=== PATIENT | female | born 1985 | race Caucasian/White ===

== ENCOUNTER → 2018-05-29 10:29 | Outpatient (CLI) | payer MEDICARE, MEDICAID, SELFPAY ==
[2018-05-29 11:30] LABS: Lithium 0.56 mmol/L (0.60-1.20)
== END ==
PROVIDERS: PCP Nurse Practitioner; Visit Provider Nurse Practitioner Psychiatric/Mental Health
DX: F31.5 Bipolar disorder, current episode depressed, severe, with psychotic features (principal); Z51.81 Encounter for therapeutic drug level monitoring
CPT/HCPCS: 36415; 80178

== ENCOUNTER 2018-08-19 12:16 | Outpatient (REF) | payer MEDICARE, MEDICAID, SELFPAY ==
[2018-08-19 13:46] LABS: TSH (W/Ref FT4) 1.37 uIU/mL (0.358-3.74)
[2018-08-19 13:59] LABS: Vitamin D 25 Total 17.3 ng/ml (30-100)
== END 2018-08-19 12:36 ==
LOC: NCHCN 12:16
PROVIDERS: PCP Nurse Practitioner; Visit Provider Nurse Practitioner
DX: E55.9 Vitamin D deficiency, unspecified (principal); E03.9 Hypothyroidism, unspecified
CPT/HCPCS: 82306; 84443

== ENCOUNTER 2019-03-24 01:09 | Outpatient (CLI) | payer MEDICARE, MEDICAID, SELFPAY ==
--- NOTE | 2019-03-24 09:00 | NS.NUTBLAN_ITS ---
DESCRIPTION: Shirley Andrews presents for eating disorder follow up. She has knowledge of healthy eating and provides this for her family much of the time. She does have financial restrictions regarding food purchase. She ws going to track her food but states she tried and does not find that helpful. She eats 800-2200 calories with maintenance caloric intake at 1700 calories according to her. Today she wants a food plan. Shirley states her life is full of worry and anxiety. She is getting help with her therapist for this. ASSESSMENTP Ongoing struggle with food portions and sense of fullness. INTERVENTION: Per her wishes, we focused on a meal plan that will guide food choices and reminder to check hunger/fullness prior to and after the meal. Discussed resources for food and she does already access the ones she wants. PLAN: Shirley will follow food plan and assess hunger/fullness She wishes to return in 1 week
== END 2019-03-24 01:29 ==
PROVIDERS: PCP Nurse Practitioner; Visit Provider Dietitian, Registered
DX: F50.9 Eating disorder, unspecified (principal); Z71.3 Dietary counseling and surveillance
CPT/HCPCS: G0270

== ENCOUNTER 2019-09-11 19:21 | Outpatient (REF) | payer MEDICARE, MEDICAID, SELFPAY ==
[2019-09-11 13:51] LABS: ALT 25 U/L (14-59); AST 14 U/L (15-37); Albumin 3.8 g/dL (3.4-5.0); Alkaline Phosphatase 60 U/L (46-116); Anion Gap 12.6 mmol/L (3-11); BUN 10 mg/dL (7-18); Bilirubin, Total 0.3 mg/dL (0.2-1.0); CO2 21.4 mmol/L (21.0-32.0); CREATININE 0.84 mg/dL (0.55-1.02); Calcium 9.1 mg/dL (8.5-10.1); Calculated LDL 86 mg/dL; Chloride 107 mmol/L (98-107); Cholesterol 159 mg/dL (<200); Glucose 103 mg/dL (74-106); HDL Cholesterol 65 mg/dL (40-60); Potassium 4.5 mmol/L (3.5-5.1); Sodium 141 mmol/L (136-145); TSH (W/Ref FT4) 4.17 uIU/mL (0.36-3.74); Total Protein 7.6 g/dL (6.4-8.2); Triglyceride 44 mg/dL (<150)
[2019-09-11 14:04] LABS: Vitamin D 25 Total 20.5 ng/ml (30-100)
[2019-09-11 14:08] LABS: FREE T4 1.07 ng/dL (0.76-1.46)
== END 2019-09-11 19:41 ==
LOC: NCHCN 19:21
PROVIDERS: PCP Nurse Practitioner; Visit Provider Nurse Practitioner
DX: E03.9 Hypothyroidism, unspecified (principal); E55.9 Vitamin D deficiency, unspecified; Z13.6 Encounter for screening for cardiovascular disorders
CPT/HCPCS: 80053; 80061; 82306; 84439; 84443

== ENCOUNTER 2019-10-13 19:25 | Observation (INO) | payer MEDICARE, MEDICAID, SELFPAY ==
--- NOTE | 2019-10-13 19:38 | ED.GENADUL_ITS ---
Discharge Plan Discharge Details Chief Complaint: PsychEval Primary Care Provider: Leslee Chaves ED Provider: Soco Garza Home Meds and New Rx's Prescriptions: No Action levothyroxine 125 MCG tablet 200 mcg PO DAILY RF: 0 topiramate [Topamax] 200 mg Tablet 200 mg PO DAILY RF: 0 bupropion HCl [Wellbutrin XL] 300 mg Tablet Extended Release 24 Hr 300 mg PO QAM RF: 0 Vitamin D3 4,000 unit Capsule 4,000 unit PO DAILY RF: 0 Probiotic 20 billion cell Capsule, Sprinkle PO RF: 0 Probiotic 100 billion cell Capsule 1 cap PO DAILY RF: 0 Medical Decision Making Patient is 34-year-old female presenting today, accompanied by significant other, with chief complaint of suicidal ideation. Patient has attempted suicide by overdose multiple times historically and reports that she plans to do this once again. Her significant other seems very supportive of the patient and she feels much more comfortable with him around. She reports that at times she is alone, these symptoms can increase. She states that she has been hospitalized for this previously, last was several years ago. She states that her depression has progressively been increasing over the past several months but to return for worse in recent days. She reports that she has not been on a stable medication regimen in several months, has been stopping medications without medical management for this. Patient reports she has a history of bipolar, depression, hypothyroidism. Feels safe at home in a relationship. Overall, feels that the life stressors that typically exacerbate her depression have been improving any despite this, her thoughts of suicide have become more frequent. On exam, patient appears anxious. Otherwise, appears nontoxic. She is declining anxiolytics at this time. She does have old scarring consistent with self-inflicted wounds on the right forearm. No new wounds are evident. Patient is cooperative, seems to have good insight but does seem impulsive. Recently history, reveals patient is likely to need inpatient care. Will consult with mental health, requested CPS laboratory evaluation. Patient's TSH elevated at 13.9. Will check free T4. Free T4 WNL Patient remains calm and comfortable there. She remains on today. She was evaluated by mental health. We discussed various disposition options but I am quite concerned regarding the patient's impulsivity. She also reports mental health that she has been stockpiling medications as she has been thinking about overdosing. Has plans to use this if she is alone. The patient initially had been thinking about being discharged home. However, she seems only be safe in the presence of her significant other who will have to go back to work. With this in mind, and the patient's impulsivity as well as her access to medications, feel that inpatient admission is appropriate. Patient understands the logic and is voluntary to stay. She seems very proactive in her care and is engaged in this plan. Consulted with Dr. Olsen who agrees to admission. HPI General Mode of arrival: ambulatory . Date/Time Provider Initiated Documentation: 10/13/19 19:27 . Limitations to Documentation: no limitations . Information obtained by: patient, family (significant other) and RN notes reviewed . HPI Narrative: Patient is a pleasant 34-year-old female with history of bipolar, depression, hypothyroidism. She reports that she has had issues with the past several months with worsening depression but feels that this is greatly exacerbated over the past few days. Reports that her mental health provider has been adjusting medications and that she did abruptly stop a number of them approximately 1 week ago. Last had her medications changed last week. Reports that over the past few days she is developed suicidal ideations with p lans of overdose. She reports that she has attempted overdose 3 times historically. Reports a particularly when her significant other is gone, these thoughts can become exacerbated. She denies any homicidal ideation. States that she is feeling well otherwise physically. Denies any recent illness. No recent travel. States that she is a student but is currently on break, is cutting back to a part-time at work. Despite this, her depression has been exacerbated even though her overall stress is been improving. Patient is reports she is been having brief visual hallucinations. Describes them as seeing figures in her peripheral vision. Related Data Home Medications Medication Instructions Recorded Confirmed levothyroxine 200 mcg PO DAILY 03/05/15 10/13/19 L.rhamn A-191-L.ac-B.jesus-B.deepali cap PO 10/13/19 [Probiotic] Lactobac 40-Bifido 3-S.thermop 1 cap PO DAILY 10/13/19 10/13/19 [Probiotic] bupropion HCl [Wellbutrin XL] 300 mg PO QAM 10/13/19 10/13/19 cholecalciferol (vitamin D3) 4,000 unit PO DAILY 12/23/19 12/23/19 [Vitamin D3] topiramate [Topamax] 200 mg PO DAILY 10/13/19 10/13/19 Allergies Allergy/AdvReac Type Severity Reaction Status Date / Time lamotrigine Allergy Severe Skin Rash Unverified 10/13/19 20:11 latex Allergy Severe RASH, Unverified 10/13/19 20:11 ANAPHALAXSIS cephalexin monohydrate Allergy Intermediate Hives Unverified 10/13/19 20:11 [From Keflex] Penicillins Allergy Intermediate Skin Rash Unverified 10/13/19 20:11 Review of Systems Constitutional Constitutional: Reports as per HPI, Denies chills, Denies fatigue, Denies fever(s), Denies headache(s) and Denies weakness Eyes Eyes: Denies change in vision ENT Ears, Nose, Mouth, and Throat: Denies headache(s) Cardiovascular Cardiovascular: Reports as per HPI, Denies chest pain, Denies lightheadedness, Denies dyspnea and Denies dyspnea on exertion Respiratory Respiratory: Reports as per HPI, Denies cough, Denies dyspnea and Denies dyspnea on exertion Gastrointestinal Gastrointestinal: Reports as per HPI, Denies abdominal pain, Denies change in claudette wel habits, Denies nausea and Denies vomiting Musculoskeletal Musculoskeletal: Denies abnormal gait Integumentary/Breasts Skin/Breast: Reports as per HPI and Denies rash Neurologic Neurologic: Denies abnormal movements, Denies abnormal speech, Denies abnormal g ait, Denies headache(s), Denies paresthesias and Denies weakness Endocrine Endocrine: Denies fatigue PFSH Social History Smoking/Tobacco Use Status: Former Tobacco Use Alcohol Intake: current Alcohol Intake frequency: holidays/special occasions on ly Drug use: Occasionally Do you feel safe in your relationship?: Yes Exam Const General: cooperative, healthy appearing, comfortable, no acute distress, well developed and well groomed Nutritional Appearance: well nourished and overweight Orientation: alert and awake Eyes General: appearance normal, both eyes and all related structures Resp Effort & Inspection: normal respiratory effort, able to speak in complete sentences and no respiratory distress Auscultation: clear to auscultation bilaterally, no rales, no rhonchi and no wheezes Cardio Rate: regular rate Rhythm: regular rhythm Heart Sounds: S1 normal and S2 normal Skin General skin exam: no rashes or lesions noted Trauma: no lacerations or abrasions Neuro General: alert and awake Cognition: normal cognition Speech: speech normal Gait: normal gait Psych Appearance: grossly normal and well kempt Mental Status: mental status grossly normal Speech and Movement: speech and movement normal Mood: congruent mood Affect: sad Attitude: cooperative Thought Process: normal Thought Content: hallucinations visual and suicidality Insight: insight good Judgment: limited
[2019-10-13 19:40] VITALS: BP 145/94; PULSE 93; RESP 18; TEMP 36.8; O2SAT 97
[2019-10-13 20:09] LABS: Abs Immature Grans 0.03 k/cumm (0.0-0.09); Absolute Basophil Count 0.04 k/cumm (0.0-0.2); Absolute Eosinophil Count 0.27 k/cumm (0.0-0.7); Absolute Lymphocyte Count 2.05 k/cumm (1.2-3.4); Absolute Monocyte Count 0.42 k/cumm (0.11-0.7); Absolute Neutrophil Count 6.33 k/cumm (1.2-6.7); Basophils % 0.4; HCT 36.7 % (36.0-46.0); HGB 12.4 g/dL (12.0-15.5); Immature Grans % 0.3; Lymphocytes % 22.4; Mean Corp. HGB Concentration 33.8 g/dL (32.0-36.0); Mean Corpuscular Hemoglobin 28.8 pg (27.0-33.0); Mean Corpuscular Volume 85.2 fL (80-95); Mean Platelet Volume 11.5 fL (8.0-11.0); Monocytes % 4.6; Neutrophils % 69.3; Platelet Count 271 x1000/uL (130-400); RBC 4.31 m/cumm (4.00-5.20); RBC Distribution Width 13.7 % (11.7-14.6); White Blood Cell Count 9.14 k/cumm (4.4-10.8)
--- NOTE | 2019-10-13 20:19 | NUR.NOTE ---
Nursing Note: Patient states anxiety is manageable at this time. Will let staff know if it increases.
[2019-10-13 20:23] LABS: *AMPHETAMINES SCREEN URINE Negative (Negative); *BARBITURATES SCREEN URINE Negative (Negative); *BENZODIAZEPINES SCREEN URINE Negative (Negative); Cannabinoids THC Negative (Negative); Cocaine Screen,Urine Negative (Negative); METHADONE URINE SCREEN Negative (Negative); OPIATES URINE SCREEN Negative (Negative)
[2019-10-13 20:31] LABS: Tricyclic Antidepressants Negative (Negative)
[2019-10-13 20:33] LABS: ALT 20 U/L (14-59); AST 10 U/L (15-37); Albumin 3.7 g/dL (3.4-5.0); Alkaline Phosphatase 56 U/L (46-116); Anion Gap 10.6 mmol/L (3-11); BUN 11 mg/dL (7-18); Bilirubin, Total 0.3 mg/dL (0.2-1.0); CO2 25.4 mmol/L (21.0-32.0); CREATININE 0.95 mg/dL (0.55-1.02); Calcium 8.6 mg/dL (8.5-10.1); Chloride 108 mmol/L (98-107); Glucose 108 mg/dL (74-106); Potassium 3.4 mmol/L (3.5-5.1); Sodium 144 mmol/L (136-145); TSH 13.99 uIU/mL (0.36-3.74); Total Protein 7.7 g/dL (6.4-8.2)
[2019-10-13 20:39] LABS: Salicylate < 2.8 mg/dL (2.8-20.0)
[2019-10-13 20:42] LABS: Acetaminophen < 2 ug/mL (10-30)
[2019-10-13 20:52] LABS: ETHANOL BLOOD < 3.0 mg/dL (<3)
--- NOTE | 2019-10-13 22:07 | PDOC.MHCN ---
Date of service: 10/13/19 Time of Service: 21:30 Mental Health Crisis Note Presenting Issue How did you arrive at the ED and why did you come: Patient Arrived to the ED for mental health screening; Patient has been experiencing severe anxiety and suicidal ideation. Patient arrived with the support of the significant other. Precipitating Factors Patient reports to be experiencing suicidal ideation, anxiety and intense panic attacks. Patient has been under a lot of stress due to home life and work related responsibilities. Patient is the biological mother of a set of twins (6 years old), Triplets (7 years old) and on the weekends they have their eldest child. Patient works in a high stress environment where transference is common, with limited coping strategies are currently in practice, to help manage the stress. Patient receives services at [facility] for medication management and case management. Patient reported that she used to be enrolled in [employer] services but, became unenrolled as she was high functioning. Patient reported that she feels that the medications are not working to their optimal potential and should be reevaluated, in an inpatient setting, as the patient feels that they have been trying to addressed out patient with very little success. Client has also stopped taking some of her medications recently, as of Sunday. On Sunday patient reports to have had a massive panic attack and that they took their previous script of Clonidine to assist in their panic attack. Patient also reports that they are impulsive and have a stock pile of pills that they feel like they subconsciously kristi for when they feel like they want it to all end. So they can drift of to sleep and never wake up as they sometimes wish that they never were here. Client shared that they have Over dosed 3 times and have been hospitalized in the past. Disposition BEHAVIOR: Client appeared to be anxious, tearful and emotional overwhelmed and seeking validation that seeking treatment would be beneficial. EYE CONTACT: Client was able to maintain appropriate eye contact but, had moments tears, deep sighs, and needed to look away. MOOD: Patient reported to be depressed, anxious, concerned, worried, fearful and overwhelmed despite feeling like she had removed things from her plate to help her manage her mental health more effectively. AFFECT: Patient appeared to be calm, open and friendly. APPETITE: Patient reported that she has experienced moments of eating disorders throug out her life. Client specifically reported that she was going through a binge phase where she would eat everything. SLEEP(trouble falling/staying asleep: Patient reported that she has had little sleep and that it has been interrupted. Plan Patient will wait for a placement on voluntary status and will e moved to the second floor at [facility]. Client will be able to have contact with her fiancee, as he is a great source of support. a huddle will take place to discuss the safety plan. Provisional Diagnosis Adjustment disorder: with mixed anxiety and depression Signature Clinician's Name/Title: Lillie Arredondo Emergency Clinician - commanding officer traffic division
[2019-10-13 23:01] VITALS: BP 136/61; PULSE 65; RESP 16; O2SAT 98
--- NOTE | 2019-10-13 23:16 | PDOC.CMSAFED ---
- If Service Date Differs Date of service: 10/13/19 Time of Service: 23:17 Care Management Safety Plan Chief Complaint: Shirley, was brought to the ED with SI, she will have CPSO as ordered and an interim safety plan. Mental health has evaluated patient she is voluntary and psychiatric placement will be sought. CM spoke with provider in the ED and reviewed safety plan. CM to assess patient in the morning. Mental Health has assessed patient in the ED and has determined the patient meets criteria for psychiatric stabilization CM will facilitate interdepartmental huddle with [facility] screener for safety planning considerations and meet with patient to review [facility] policy and safety plan, establish individual wishes for treatment and maintain patient rights. SAFETY PLAN: 1. Will remain on suicide precautions and in paper clothes. 2. Will remain in room under direct supervision of one-on-one staff at all times provided by NATALIE, CYTOLOGY TEACHER wad lubricator. 3. May have paper cups, plates, finger foods as well as a metal spoon with which to eat meals. [facility] staff will be responsible for accounting of utensils after meals. 4. Follow [facility] Management of the Admitted Behavioral Health Patient policy. 5. Comfort bath wipes or shower with supervision by qualified staff. 6. No personal belongings 7. Visitors include jody Caal at the discretion of primary care staff. . 8. Phone calls at the discretion of primary care team. 9. Due to VOLUNTARY status, if patient wishes to leave [facility], the [facility] early childhood worker must be contacted to re-evaluate patient prior to patient exiting the building. If deemed appropriate for inpatient psychiatric care, safety plan will be established with patient, and care team, to adhere to patient goals, identify restrictions based on behavioral status, address nutrition, and determine allowed personal belongings, tools for hygiene and personal care. As well plan will determine level of activity including ambulation, level of supervision, visitors, and determine privileges based on level of acuity, behaviors and level of engagement by patient.
--- NOTE | 2019-10-13 23:27 | W.PM.HP.N ---
Date of service: 10/13/19 Time of Service: 23:27 Assessment and Plan Assessment and plan (1) Suicidal ideation: Status: Acute Assessment and plan: Patient is admitted under observation status pending transfer to an inpatient psychiatric facility. She is admitted under voluntary status. I will resume her Wellbutrin and her Topamax. (2) Bipolar disorder current episode depressed: Status: Acute Assessment and plan: As above Qualifiers: Current episode severity: severe Psychotic features: without psychotic features Qualified Code(s): F31.4 - Bipolar disorder, current episode depressed, severe, without psychotic features (3) Hypothyroidism (acquired): Status: Acute Assessment and plan: Resume her levothyroxine 200 mcg daily. I am not sure that she has been compliant with her levothyroxine as she is not been compliant with her antidepressants. History of Present Illness History of Present Illness Chief Complaint: depression, suicidal ideation Narrative: 34-year-old female with history of bipolar disorder, anxiety disorder, hypothyroidism who is been experiencing increasing symptoms of depression for the last couple months. She is a client of [facility] where she receives her mental health treatment. She says that she has been working with her mental health provider on adjustment of her medications over the last couple months but is not been helping. Patient's been under increased stress due to work and school and home life responsibilities. She is a biological mother of a set of twins were 6 years old and triplets were 7 years old and also has a 12-year-old. Over the weekend she had stopped taking some of her medications because they were not helping and she subsequently had a massive panic attack on last Sunday in which she was crying uncontrollably and was very mckoy and verbally aggressive. She also reports increased impulsivity and has a history of stockpiling medications particularly her prior antidepressants. She is fearful that she may act impulsively and take an overdose of medications. She reportedly has had 3 previous episodes of drug overdose for which she has been hospitalized. She has had previous hospitalizations in [facility] in November [facility] in [facility] in February 2015. She is seeking inpatient treatment of her depressive episode of her bipolar disorder. She was seen by mental health pantry worker who is put out referrals to the various [facility] that have mental health facilities. Currently there are no inpatient psychiatric beds available and therefore the patient will be admitted to [facility] under a voluntary basis. Patient states that she has followed up with her primary care provider who is responsible for her thyroid replacement. Patient has a multinodular goiter and feels that her levothyroxine may need adjustment. Patient states she is been compliant with her levothyroxine. Despite that her TSH is elevated at 13.99. Patient is now admitted under observation status pending transfer to inpatient psychiatric facility. We will resume her home medications which includes Topamax and Wellbutrin and levothyroxine. Review of Systems Constitutional Constitutional: Reports fatigue Eyes Eyes: Reports system reviewed and no additional complaints, except as docu ENT Ears, Nose, Mouth, and Throat: Reports system reviewed and no additional complaints, except as docu Cardiovascular Cardiovascular: Reports system reviewed and no additional complaints, except as docu Respiratory Respiratory: Reports system reviewed and no additional complaints, except as docu Gastrointestinal Gastrointestinal: Denies abdominal pain, Denies melena, Denies hematochezia, Reports diarrhea, Denies nausea and Denies vomiting Genitourinary Genitourinary: Reports system reviewed and no additional complaints, except as docu Musculoskeletal Musculoskeletal: Reports system reviewed and no additional complaints, except as docu Integumentary/Breasts Skin/Breast: Reports system reviewed and no additional complaints, except as docu Neurologic Neurologic: Reports system reviewed and no additional complaints, except as docu and Reports behavioral changes Psychiatric Psychiatric: Reports abnormal sleep pattern (Excessive sleeping), Reports anxiety, Reports behavioral changes, Reports depression, Reports difficulty concentrating, Reports hopelessness, Reports irritability, Reports mood swings, Reports panic attacks and Reports suicidal ideation Endocrine Endocrine: Reports fatigue Hematologic/Lymphatic Hematologic/Lymphatic: Reports system reviewed and no additional complaints, except as docu Allergic/Immunologic Allergic/Immunologic: Reports system reviewed and no additional complaints, except as docu [facility] Medical History (Updated 10/14/19 @ 00:40 by Blue Olsen) Bipolar disorder current episode depressed (Acute) History of cocaine abuse (Acute) History of drug overdose (Acute) Hypothyroidism (acquired) (Acute) Multinodular goiter (Acute) Suicidal ideation (Acute) Surgical History (Updated 10/14/19 @ 00:31 by Blue Olsen) History of (Chronic) Social History Smoking/Tobacco Use Status: Former Tobacco Use Alcohol Intake: current Alcohol Intake frequency: holidays/special occasions only Drug use: Occasionally Do you feel safe in your relationship?: Yes History History 3 Para 6 Hx # Term Pregnancies 3 Multiple births 2 Hx # Pregnancies Ectopic pregnancies AB induced Hx Number of Living Children 6 AB spontaneous Meds Home Medications and Allergies Home Medications Medication Instructions Recorded Confirmed Type levothyroxine 200 mcg PO DAILY 03/05/15 10/13/19 History L.rhamn A-191-L.ac-B.jesus-B.deepali cap PO 10/13/19 History [Probiotic] Lactobac 40-Bifido 3-S.thermop 1 cap PO DAILY 10/13/19 10/13/19 History [Probiotic] bupropion HCl [Wellbutrin XL] 300 mg PO QAM 10/13/19 10/13/19 History cholecalciferol (vitamin D3) 4,000 unit PO DAILY 10/13/19 10/13/19 History [Vitamin D3] topiramate [Topamax] 200 mg PO DAILY 10/13/19 10/13/19 History Allergies Allergy/AdvReac Type Severity Reaction Status Date / Time lamotrigine Allergy Severe Skin Rash Unverified 10/13/19 20:11 latex Allergy Severe RASH, Unverified 10/13/19 20:11 ANAPHALAXSIS cephalexin monohydrate Allergy Intermediate Hives Unverified 10/13/19 20:11 [From Keflex] Penicillins Allergy Intermediate Skin Rash Unverified 10/13/19 20:11 Exam Narrative Exam Narrative: Young female who is alert and oriented person place time circumstance. She seems to be very appropriate and makes good eye contact with me. She is not tearful. HEENT is unremarkable. Neck supple nontender with diffuse nodular goiter. Normal carotid pulses no bruits, no JVD. Lungs clear to auscultation Heart regular rate and rhythm without murmur rub or gallop. Abdomen obese soft and nontender. Extremities without peripheral cyanosis or edema. No calf tenderness. Neurologic exam grossly intact nonfocal. Results Labs Result diagrams: 10/13/19 20:00 10/13/19 20:00 Labs: Laboratory Results - last 24 hr 10/13/19 10/13/19 10/13/19 19:50 20:00 20:00 WBC RBC Hgb Hct MCV MCH MCHC RDW Plt Count MPV Immature Gran % Neutrophils % Lymphocytes % Monocytes % Eosinophils % Basophils % Absolute Neutrophils Absolute Lymphocytes Absolute Monocytes Absolute Eosinophils Absolute Basophils Sodium 144 Potassium 3.4 L Chloride 108 H Carbon Dioxide 25.4 Anion Gap 10.6 BUN 11 Creatinine 0.95 Estimated GFR/1.73 m2 >= 60.00 Glucose 108 H Calcium 8.6 Total Bilirubin 0.3 AST 10 L ALT 20 Alkaline Phosphatase 56 Total Protein 7.7 Albumin 3.7 TSH 13.99 H Free T4 Salicylates < 2.8 L Urine Opiates Screen Negative Urine Methadone Screen Negative Acetaminophen < 2 L Ur Barbiturates Screen Negative Ur Tricyclics Screen Negative Ur Amphetamines Screen Negative U Benzodiazepines Scrn Negative Urine Cocaine Screen Negative Ur THC Screen Negative Ethyl Alcohol < 3.0 10/13/19 10/13/19 20:00 20:00 WBC 9.14 RBC 4.31 Hgb 12.4 Hct 36.7 MCV 85.2 MCH 28.8 MCHC 33.8 RDW 13.7 Plt Count 271 MPV 11.5 H Immature Gran % 0.3 Neutrophils % 69.3 Lymphocytes % 22.4 Monocytes % 4.6 Eosinophils % 3.0 Basophils % 0.4 Absolute Neutrophils 6.33 Absolute Lymphocytes 2.05 Absolute Monocytes 0.42 Absolute Eosinophils 0.27 Absolute Basophils 0.04 Sodium Potassium Chloride Carbon Dioxide Anion Gap BUN Creatinine Estimated GFR/1.73 m2 Glucose Calcium Total Bilirubin AST ALT Alkaline Phosphatase Total Protein Albumin TSH Free T4 0.80 Salicylates Urine Opiates Screen Urine Methadone Screen Acetaminophen Ur Barbiturates Screen Ur Tricyclics Screen Ur Amphetamines Screen U Benzodiazepines Scrn Urine Cocaine Screen Ur THC Screen Ethyl Alcohol Last Vital Signs Temp 36.8 C 10/13/19 19:40 Pulse 65 10/13/19 23:01 Resp 16 10/13/19 23:01 BP 136/61 10/13/19 23:01 Pulse Ox 98 10/13/19 23:01
--- NOTE | 2019-10-13 23:32 | NUR.NOTE ---
Nursing Note:Patient sent keyla vargas home with S.O.
[2019-10-14 00:10] VITALS: BP 136/61; PULSE 65; RESP 16; O2SAT 98
[2019-10-14 00:40] VITALS: BP 138/88; PULSE 76; RESP 17; TEMP 36.8; O2SAT 98
[2019-10-14 07:25] VITALS: BP 132/73; PULSE 59; RESP 18; TEMP 36.9; O2SAT 97
[2019-10-14] MEDS: Mylanta Suspension 30 ML CUP PO (07:57)
[2019-10-14] MEDS: Cholecalciferol (Vitamin D3) 1,000 UNIT TAB 4000 UNITS PO (09:12)
[2019-10-14] MEDS: Topiramate 100 MG TAB 200 MG PO (09:12)
[2019-10-14] MEDS: Levothyroxine 100 MCG TAB 200 MCG PO (09:12)
[2019-10-14] MEDS: buPROPion-XL 150 MG TABCR 300 MG PO (09:12)
[2019-10-14] MEDS: Lactobacillus Acidophilus CAP 1 CAP PO (09:14)
--- NOTE | 2019-10-14 09:36 | NUR.NOTE ---
Nursing Note: Report phone to at [facility] Psychiatric unit. All questions answered
--- NOTE | 2019-10-14 09:57 | W.PM.DS.N ---
Date of service: 10/14/19 Time of Service: 09:58 DS: Diagnosis Discharge Diagnosis (1) Suicidal ideation: Status: Acute (2) Bipolar disorder current episode depressed: Status: Acute (3) Hypothyroidism (acquired): Status: Acute Discharge Plan Disposition Patient Disposition: [facility] [place] [facility] [place] Condition: Serious Discharge Details Chief Complaint: PsychEval Reason For Visit: SUICIDAL IDEATION, DEPRESSION Admit Date/Time: 10/14/19 00:35 Admit Provider: Blue Olsen Attending Provider: Blue Olsen Primary Care Provider: Leslee Chaves ED Provider: Soco Garza [facility] Hospital Course: Shirley Mata is a pleasant 34 year old female with a past medical history significant for Bipolar I, anxiety and hypothyroidism who has had prior suicide attempts and psychiatric hospitalizations who presented to the hospital yesterday with reports of suicidal ideation. She reports feeling overwhelmed at home, she has twins that are age 6 and triplets that are age 7, as well as a 12 year old. She reported that she stopped taking some of her medications over the weekend because she did not feel that they were helping and she went on to have a panic attack 3 days prior to her presentation. She was admitted on a voluntary basis and interested in inpatient hospitalization. She reports feeling safe here at the hospital, but is concerned that she may attempt to harm or kill herself if she was home. She has been accepted at [facility] for psychaitric stabilization and will transfer there today. Of note, she also reports mild, ongoing epigastric discomfort and was iniated on omeprazole while at [facility], this will be continued upon discharge. Her TSH was noted to be high at 13.99, she has a multinodular goiter and reported being compliant with her levothyroxine, therefore, her dose was increased from 200 to 225 mcg daily. Home Meds and New Rx's Prescriptions: New omeprazole 20 mg Capsule,Delayed Release(Dr/Ec) 20 mg PO DAILY@0730 Qty: 0 RF: 0 Continued topiramate [Topamax] 200 mg Tablet 200 mg PO DAILY RF: 0 bupropion HCl [Wellbutrin XL] 300 mg Tablet Extended Release 24 Hr 300 mg PO QAM RF: 0 Vitamin D3 4,000 unit Capsule 4,000 unit PO DAILY RF: 0 Probiotic 20 billion cell Capsule, Sprinkle PO RF: 0 Probiotic 100 billion cell Capsule 1 cap PO DAILY RF: 0 Changed levothyroxine 125 MCG tablet 225 mcg PO DAILY Qty: 0 RF: 0 Discharge Instructions Instructions: Suicide Prevention for Adults (DC) Activity:: Activity as Tolerated Equipment/Supplies:: No Equipment Needed Diet:: As Tolerated Discharge Orders Discharge Orders: Discharge Order (Routine); Ordered 10/14/19 Ordered By: Jennie Cote DS: Summary Status at Discharge Functional status at discharge: independent ambulation Overall status at discharge: patient is not back to baseline Mental Status: other (depressed with suicidal ideation. ) Speech and Movement: speech and movement normal Mood: anxious mood and other (depressed with suicidal ideation. ) Affect: sad Exam Narrative Exam Narrative: General: overweight, 34 year old female, appears stated age, tearful. HEENT: normocephalic, atraumatic, pupils equal and round, EOMI, mucous membranes moist. Neck: supple, no JVD. Cardiovascular: heart has regular rate and rhythm, non-tachycardic, no murmur appreciated. Respiratory: Respirations appear even and unlabored, lung sounds clear to auscultation throughout. GI: Normoactive bowel sounds, abdomen soft, nontender on palpation, nondistended. Extremities: No clubbing, cyanosis or edema. Psych Mental Status: other (depressed with suicidal ideation. ) Speech and Movement: speech and movement normal Mood: anxious mood and other (depressed with suicidal ideation. ) Affect: sad DS: Data Vitals/I&O Vitals and I&O: Vital Signs Temperature 36.9 C 10/14/19 07:25 Temperature Source Tympanic 10/14/19 07:25 Pulse 59 L 10/14/19 07:25 Pulse Rhythm Regular 10/14/19 08:00 Respiratory Rate 18 10/14/19 07:25 Respiratory Effort Non-Labored 10/14/19 08:00 Respiratory Depth Normal 10/14/19 08:00 Respiratory Pattern Normal 10/14/19 08:00 Blood Pressure 132/73 10/14/19 07:25 Pulse Oximetry 97 10/14/19 07:25 Oxygen Delivery Method Room Air 10/14/19 07:25 Oxygen Flow Rate 0 10/14/19 07:25 Pain Level 5 10/14/19 07:25 Intake & Output 10/13/19 10/13/19 10/14/19 11:59 23:59 11:59 Weight 136.078 kg 138.2 kg Other: Comment pt voiding indpendently. Voiding Methods Toilet Data Completed and Pending Labs on day of discharge: Labs from last 24 hours 10/13/19 10/13/19 10/13/19 20:00 20:00 20:00 WBC 9.14 RBC 4.31 Hgb 12.4 Hct 36.7 MCV 85.2 MCH 28.8 MCHC 33.8 RDW 13.7 Plt Count 271 MPV 11.5 H Immature Gran % 0.3 Neutrophils % 69.3 Lymphocytes % 22.4 Monocytes % 4.6 Eosinophils % 3.0 Basophils % 0.4 Absolute Neutrophils 6.33 Absolute Lymphocytes 2.05 Absolute Monocytes 0.42 Absolute Eosinophils 0.27 Absolute Basophils 0.04 Sodium Potassium Chloride Carbon Dioxide Anion Gap BUN Creatinine Estimated GFR/1.73 m2 Glucose Calcium Total Bilirubin AST ALT Alkaline Phosphatase Total Protein Albumin TSH Free T4 0.80 Salicylates < 2.8 L Urine Opiates Screen Urine Methadone Screen Acetaminophen < 2 L Ur Barbiturates Screen Ur Tricyclics Screen Ur Amphetamines Screen U Benzodiazepines Scrn Urine Cocaine Screen Ur THC Screen Ethyl Alcohol 10/13/19 10/13/19 20:00 19:50 WBC RBC Hgb Hct MCV MCH MCHC RDW Plt Count MPV Immature Gran % Neutrophils % Lymphocytes % Monocytes % Eosinophils % Basophils % Absolute Neutrophils Absolute Lymphocytes Absolute Monocytes Absolute Eosinophils Absolute Basophils Sodium 144 Potassium 3.4 L Chloride 108 H Carbon Dioxide 25.4 Anion Gap 10.6 BUN 11 Creatinine 0.95 Estimated GFR/1.73 m2 >= 60.00 Glucose 108 H Calcium 8.6 Total Bilirubin 0.3 AST 10 L ALT 20 Alkaline Phosphatase 56 Total Protein 7.7 Albumin 3.7 TSH 13.99 H Free T4 Salicylates Urine Opiates Screen Negative Urine Methadone Screen Negative Acetaminophen Ur Barbiturates Screen Negative Ur Tricyclics Screen Negative Ur Amphetamines Screen Negative U Benzodiazepines Scrn Negative Urine Cocaine Screen Negative Ur THC Screen Negative Ethyl Alcohol < 3.0 PFSH Medical History Bipolar disorder current episode depressed (Acute) History of cocaine abuse (Acute) History of drug overdose (Acute) Hypothyroidism (acquired) (Acute) Multinodular goiter (Acute) Suicidal ideation (Acute) Surgical History History of (Chronic) Social History Smoking/Tobacco Use Status: Former Tobacco Use Alcohol Intake: current Alcohol Intake frequency: holidays/special occasions only Drug use: Occasionally Do you feel safe in your relationship?: Yes History History 3 Para 6 Hx # Term Pregnancies 3 Multiple births 2 Hx # Pregnancies Ectopic pregnancies AB induced Hx Number of Living Children 6 AB spontaneous
--- NOTE | 2019-10-14 10:08 | PDOC.CMDIS ---
LACE Index Scoring Tool - Questions: Length of Stay (in days): 1 Acuity (Admit via E.D.?): Yes E.D. Visits: 2 - Answers: Total Score: 6 Risk of Readmission: Low Risk Care Management Discharge Reason for Hospitalization: Suicidal Ideation, Depression Discharge Plan: Shirley will transfer to [facility] via [facility], coordinated by this technical publications writer. CM reviewed discharge/transfer information, provided contact information to Katia Mcgee and answered Shirley's questions. Shirley expressed shame and tearfully explained how her children has witnessed one of her panic attacks. She expressed gratitude at being able to access help and stabilize. Patient/Family Education Needs: Review discharge instructions, discuss transfer considerations. Services Needed at Discharge: Psychiatric Facility ([facility] ), Transportation ([facility]; [place] was contacted and unavailable, [facility] was only available in the afternoon which would not provide arrival within admission time available. )
[2019-10-14] MEDS: Omeprazole 20 MG CAPCR PO (10:31)
--- NOTE | 2019-10-14 10:40 | W.NUTCONSULT ---
Date of service: 10/14/19 Time of Service: 10:41 Nutritional Consult ASSESSMENT: 34 year old female admitted to ER for suicidal ideation. PMH: eating disorder NOS, depression, bipoloar, hypothyroidism, morbid obesity. Following Precaution/finger food meal plan. Has history of suicidal ideation/inpatient treatments. Would benefit from eating disorder treatment once discharged and return homes. At high nutritional risk in view of morbid obesity and history of disordered eating. Met with Shirley and provided contact info for nutrition counseling. Time Spent in Nutritional Counseling and Treatment: 15 min spent face to face
== END 2019-10-14 10:55 | disposition short-term general hospital (02) ==
LOC: ER 22:50 → MS 10-14 00:40
PROVIDERS: Admitting Provider Internal Medicine; Emergency Provider Physician Assistant; PCP Nurse Practitioner; Visit Provider Internal Medicine
DX: F31.4 Bipolar disorder, current episode depressed, severe, without psychotic features (principal); R45.851 Suicidal ideations; E03.9 Hypothyroidism, unspecified; Z91.5 Personal history of self-harm; R10.13 Epigastric pain
CPT/HCPCS: 36415; 80053; 80307; 81025; 99219; 99239; 99285; 80320; 80329; 84439; 84443; 85025; 99217; 99284; G0378

== ENCOUNTER 2019-11-04 09:01 | Outpatient (CLI) | payer MEDICARE, MEDICAID, SELFPAY ==
[2019-11-04 09:44] LABS: VALPROIC ACID 80.7 ug/mL (50-100)
== END 2019-11-04 09:21 ==
PROVIDERS: PCP Nurse Practitioner; Visit Provider Nurse Practitioner Psychiatric/Mental Health
DX: F31.5 Bipolar disorder, current episode depressed, severe, with psychotic features (principal); Z51.81 Encounter for therapeutic drug level monitoring; Z79.899 Other long term (current) drug therapy
CPT/HCPCS: 36415; 80164

== ENCOUNTER 2019-11-21 17:23 | Emergency (ER) | payer MEDICARE, MEDICAID, SELFPAY ==
[2019-11-21 17:31] VITALS: BP 134/60; PULSE 64; RESP 18; TEMP 36.8
--- NOTE | 2019-11-21 17:51 | W.ED.GENAD ---
Discharge Plan Disposition Patient Disposition: HOME Condition: Stable Discharge Details Chief Complaint: PsychEval Clinical Impression: Depression Primary Care Provider: Leslee Chaves ED Provider: Erich Sadler Home Meds and New Rx's Prescriptions: Continued topiramate [Topamax] 200 mg Tablet 200 mg PO DAILY RF: 0 Vitamin D3 4,000 unit Capsule 4,000 unit PO DAILY RF: 0 Probiotic 20 billion cell Capsule, Sprinkle PO RF: 0 Probiotic 100 billion cell Capsule 1 cap PO DAILY RF: 0 levothyroxine 125 MCG tablet 225 mcg PO DAILY Qty: 0 RF: 0 divalproex [Depakote] 500 mg Tablet,Delayed Release (Dr/Ec) 500 mg RF: 0 lorazepam 0.5 mg Tablet RF: 0 Viibryd 40 mg Tablet 40 mg PO RF: 0 Discharge Instructions Additional Instructions: Follow up with [facility] If you feel more depressed or having worsening thoughts of self harm call [facility] immediately or return to the emergency department Medical Decision Making 34 yo female with hx of bipolar and recent hospitalization a month ago at [facility] comes in with worsening thoughts of self harm since d/c from there. Has been performing superficial cutting of her forearms that are very superficial and of various stages ofhealing and not deep enough to reuqire sutures, no evidence of infection. She has not tried to harm herself otherwise but today was having thoughts of wanting to take a punch of pills. Denies alcohol or drug use, is caox4 with stable gait and clear speech and no focal motor or senstaion deficits. No findings on history or physical exam to suggest underlying medical process such as infectious or endocrine disorder as cause of her symptoms. Medically cleared to see mental health Pt seen by mental health and is comfortable with d/c, denies SI now and has no plan. She understands to discuss with mental health in follow up and if worsening return to the emergency department Differential Diagnosis Differential Diagnosis: SI, depression Lab Data Lab results reviewed: Yes I reviewed the patient's lab results. HPI General Mode of arrival: ambulatory. Date/Time Provider Initiated Documentation: 11/21/19 17:28. Limitations to Documentation: no limitations. Information obtained by: patient. History of Present Illness 34 year old F presents to the emergency department with the chief complaint of thoughts of self harm, described as moderate, and it has been constant. No relieving factors improve symptom(s), No exacerbating factors reported . Patient did receive the following treatments prior to arrival, none Related Data Home Medications Medication Instructions Recorded Confirmed Probiotic 1 cap PO DAILY 10/13/19 10/13/19 Probiotic cap PO 10/13/19 Vitamin D3 4,000 unit PO DAILY 10/13/19 10/13/19 topiramate [Topamax] 200 mg PO DAILY 10/13/19 11/21/19 levothyroxine 225 mcg PO DAILY #0 tab 10/14/19 11/21/19 Viibryd 40 mg PO 11/21/19 divalproex [Depakote] 500 mg 11/21/19 lorazepam 11/21/19 Previous Rx's Medication Instructions Recorded levothyroxine 225 mcg PO DAILY #0 tab 10/14/19 Allergies Allergy/AdvReac Type Severity Reaction Status Date / Time lamotrigine Allergy Severe Skin Rash Unverified 11/21/19 17:40 latex Allergy Severe RASH, Unverified 11/21/19 17:40 ANAPHALAXSIS cephalexin monohydrate Allergy Intermediate Hives Unverified 11/21/19 17:40 [From Keflex] Penicillins Allergy Intermediate Skin Rash Unverified 11/21/19 17:40 General Stated Complaint: PsychEval HERMELINDO: 2 Review of Systems All systems reviewed & are unremarkable except as noted in HPI and below Constitutional Constitutional: Denies chills, Denies fever(s) and Denies weakness ENT Ears, Nose, Mouth, and Throat: Denies change in voice Cardiovascular Cardiovascular: Denies chest pain and Denies dyspnea Respiratory Respiratory: Denies cough and Denies dyspnea Gastrointestinal Gastrointestinal: Denies abdominal pain, Denies nausea and Denies vomiting Musculoskeletal Musculoskeletal: Denies joint swelling Neurologic Neurologic: Denies weakness [facility] Social History Smoking/Tobacco Use Status: Former Tobacco Use Alcohol Intake: current Alcohol Intake frequency: holidays/special occasions only Drug use: Occasionally Details: patient vapes Do you feel safe at home: No Do you feel safe in your relationship?: Yes History History 3 Para 6 Hx # Term Pregnancies 3 Multiple births 2 Hx # Pregnancies Ectopic pregnancies AB induced Hx Number of Living Children 6 AB spontaneous Exam Const General: no acute distress Orientation: alert HENMT Head: normal to inspection Ears: external ears normal General nose exam: external nose normal Mouth: moist mucous membranes Eyes General: appearance normal, both eyes and all related structures Neck Neck: normal visual inspection Resp Effort & Inspection: normal respiratory effort and able to speak in complete sentences Cardio Rate: regular rate Skin General skin exam: no rashes or lesions noted Neuro General: alert and oriented x3 Extrem General: normal to inspection Psych Appearance: well kempt Course Vital Signs Vital signs: Vital Signs Temperature 36.8 C 11/21/19 17:31 Pulse 64 11/21/19 17:31 Respiratory Rate 18 11/21/19 17:31 Blood Pressure 134/60 11/21/19 17:31 Temperature 36.8 C 11/21/19 17:31 Temperature Source Skin 11/21/19 17:31 Pulse 64 11/21/19 17:31 Respiratory Rate 18 11/21/19 17:31 Respiratory Effort 11/21/19 17:39 Blood Pressure 134/60 11/21/19 17:31 Blood Pressure Position Sitting 11/21/19 17:31 Oxygen Delivery Method Room Air 11/21/19 17:31 Oxygen Flow Rate 0 11/21/19 17:31
[2019-11-21 18:01] LABS: Abs Immature Grans 0.06 k/cumm (0.0-0.09); Absolute Basophil Count 0.03 k/cumm (0.0-0.2); Absolute Eosinophil Count 0.21 k/cumm (0.0-0.7); Absolute Lymphocyte Count 1.59 k/cumm (1.2-3.4); Absolute Monocyte Count 0.48 k/cumm (0.11-0.7); Basophils % 0.4; Eosinophils % 2.9; HGB 12.4 g/dL (12.0-15.5); Immature Grans % 0.8 %; Lymphocytes % 22.2; Mean Corp. HGB Concentration 33.5 g/dL (32.0-36.0); Mean Corpuscular Hemoglobin 29.7 pg (27.0-33.0); Mean Corpuscular Volume 88.5 fL (80-95); Mean Platelet Volume 11.6 fL (8.0-11.0); Monocytes % 6.7; Platelet Count 248 x1000/uL (130-400); RBC 4.18 m/cumm (4.00-5.20); RBC Distribution Width 14.3 % (11.7-14.6); White Blood Cell Count 7.17 k/cumm (4.4-10.8)
[2019-11-21 18:21] LABS: ALT 19 U/L (14-59); AST 11 U/L (15-37); Albumin 3.5 g/dL (3.4-5.0); Alkaline Phosphatase 55 U/L (46-116); Anion Gap 9.4 mmol/L (3-11); BUN 11 mg/dL (7-18); Bilirubin, Total 0.3 mg/dL (0.2-1.0); CO2 23.6 mmol/L (21.0-32.0); CREATININE 0.98 mg/dL (0.55-1.02); Calcium 8.2 mg/dL (8.5-10.1); Chloride 108 mmol/L (98-107); Glucose 118 mg/dL (74-106); Potassium 3.7 mmol/L (3.5-5.1); Sodium 141 mmol/L (136-145); TSH (W/Ref FT4) 2.03 uIU/mL (0.36-3.74); Total Protein 7.6 g/dL (6.4-8.2)
[2019-11-21 18:31] LABS: ETHANOL BLOOD < 3.0 mg/dL (<3)
[2019-11-21 18:54] LABS: Acetaminophen < 2 ug/mL (10-30); Salicylate 3.2 mg/dL (2.8-20.0)
--- NOTE | 2019-11-21 19:49 | PDOC.MHCN ---
Date of service: 11/21/19 Time of Service: 19:51 Mental Health Crisis Note Presenting Issue How did you arrive at the ED and why did you come: Karla showed up today at the request of her family for hospital placement. She was brought in by her fiance. Precipitating Factors Amber does endorse SI but denied HI. She stated that she also has hallucinations and at times delusions. After she described them it seems that the delusions are not true delusions as she does not ever believe they are real they just give her the feleing they are real. Disposition BEHAVIOR: Amber is cooperative and engaged. She expresses that she wish there was a partial inpatient program because she believes this would be helpful. She does not want to be inpatient however as she is not feeling that she is in a place where she can not be in control. She is willing to safety plan wiht this clinician as well. EYE CONTACT: Amber makes good eye contact. MOOD: Her mood appears depressed and slightly anxious. No observations of a thought disorder are observed. AFFECT: Amber's affect is normal and appropriate for the discussion we are having. She is appropriately tearful or laughing etc. APPETITE: Amber described her appetite as insashable. SLEEP(trouble falling/staying asleep: L reported her sleep is normal. Plan Amber developed a safety plan today. She is going to call this clinician 2 times a day for the weekend. She is going to allow her fiance to administer her medications. She is open to increased counseling. Signature Clinician's Name/Title: Carmen Gasca MS, [facility] Emergency Services Clinician
== END 2019-11-21 19:55 | disposition home or self-care (01) ==
PROVIDERS: Emergency Provider Emergency Medicine; PCP Nurse Practitioner
DX: F31.9 Bipolar disorder, unspecified (principal); R45.851 Suicidal ideations; S51.812A Laceration without foreign body of left forearm, initial encounter; S51.811A Laceration without foreign body of right forearm, initial encounter; X78.8XXA Intentional self-harm by other sharp object, initial encounter
CPT/HCPCS: 36415; 80053; 80307; 99285; 80320; 80329; 81003; 84443; 85025; 99284

== ENCOUNTER 2019-11-27 12:43 | Outpatient (REF) | payer MEDICARE, SELFPAY ==
[2019-11-27 18:33] LABS: Hemoglobin A1C 5.1 % (3.8-5.6)
[2019-11-27 19:02] LABS: Vitamin D 25 Total 21.6 ng/ml (30-100)
== END 2019-11-27 13:03 ==
LOC: NCHCN 12:43
PROVIDERS: PCP Nurse Practitioner; Visit Provider Nurse Practitioner
DX: R73.9 Hyperglycemia, unspecified (principal); E55.9 Vitamin D deficiency, unspecified; E03.9 Hypothyroidism, unspecified
CPT/HCPCS: 82306; 83036

== ENCOUNTER 2020-02-18 11:52 | Outpatient (REF) | payer MEDICARE, SELFPAY | END 2020-02-18 12:12 | LOC: NCHCN 11:52 | PROVIDERS: PCP Nurse Practitioner; Visit Provider Physician Assistant | DX: R10.9 Unspecified abdominal pain (principal); Z53.8 Procedure and treatment not carried out for other reasons | CPT/HCPCS: 87491; 87591 ==

== ENCOUNTER 2020-03-09 09:27 | Outpatient (REF) | payer MEDICARE, SELFPAY ==
[2020-03-09 14:56] LABS: TSH (W/Ref FT4) 0.42 uIU/mL (0.36-3.74)
== END 2020-03-09 09:47 ==
LOC: NCHCN 09:27
PROVIDERS: PCP Nurse Practitioner; Visit Provider Nurse Practitioner
DX: E03.9 Hypothyroidism, unspecified (principal)
CPT/HCPCS: 84443

== ENCOUNTER 2020-03-17 12:00 | Outpatient (CLI) | payer MEDICARE, SELFPAY ==
[2020-03-17 13:40] LABS: HCG Quant, Pregnancy < 1 mIU/mL (1-3)
[2020-03-18 11:50] LABS: Prolactin 11.5 ng/mL (See Table)
== END 2020-03-17 12:20 ==
PROVIDERS: PCP Nurse Practitioner; Visit Provider Obstetrics & Gynecology
DX: R10.2 Pelvic and perineal pain (principal); N91.2 Amenorrhea, unspecified
CPT/HCPCS: 84146; 84702

== ENCOUNTER 2020-03-19 02:23 | Outpatient (CLI) | payer MEDICARE, SELFPAY ==
--- NOTE | 2020-03-19 08:00 | DI.US_ITS ---
EXAM: US PELVIS TRANSVAGINAL CLINICAL HISTORY: pelvic pain,r10.2,amenorrhea,n91.2. TECHNIQUE: Transabdominal and transvaginal pelvic ultrasound was performed using standard protocol. COMPARISON: CT RENAL COLIC WO CONTRAST from 02/16/2010 US PELVIS TRANSVAG from FINDINGS: KIDNEYS: Kidneys are symmetric in size. No evidence of renal calculi. No evidence of hydronephrosis. No renal mass or cyst identified. UTERUS: The fundus of the uterus was not well seen transvaginally. Position: Anteverted. Size: 11.6 by 4.8 by 6.0 cm on trans abdominal images. Endometrium: 6 millimeters. Trace amount of fluid in the endometrium. Myometrium: Unremarkable. Cervix: Unremarkable. OVARIES: Right: 1.4 x 1.1 x 1.1 cm. The right ovary was only visualized transabdominally. Cyst or mass: None. Left: 4.8 x 3.7 x 3.9 cm. Cyst or mass: 3.4 centimeter simple appearing cyst. CUL-DE-SAC: Free fluid: None. Other: Borderline splenomegaly is noted. Spleen length is 13.6 cm. IMPRESSION: 1. Normal sonographic appearance of the kidneys. 2. Normal-appearing uterus with endometrial stripe within normal limits. 3. 3.4 centimeter simple cyst left ovary.. DATA REPOSITORY:
== END 2020-03-19 02:43 ==
PROVIDERS: PCP Nurse Practitioner; Visit Provider Obstetrics & Gynecology
DX: R10.2 Pelvic and perineal pain (principal); N91.2 Amenorrhea, unspecified; N83.292 Other ovarian cyst, left side
CPT/HCPCS: 76830; 76856